=== PATIENT | male | born 1975 | race Caucasian/White ===

== ENCOUNTER 2017-10-24 13:11 | Emergency (ER) | payer MEDICAID ==
[~2017-10-24] VITALS: Ht 175.3 cm; Wt 69.7 kg
[~2017-10-24 13:11] MED LIST: ESOM20CA PO; HYDR-569 PO; NO HOME MEDS; PROM25TA14 PO
[2017-10-24 16:06] VITALS: BP 123/96
== END 2017-10-24 16:07 | disposition home or self-care (01) ==
LOC: ER 13:11
DX: G89.29 Other chronic pain (principal); M79.644 Pain in right finger(s); G43.909 Migraine, unspecified, not intractable, without status migrainosus; F12.10 Cannabis abuse, uncomplicated; F15.10 Other stimulant abuse, uncomplicated; F11.10 Opioid abuse, uncomplicated; Z79.899 Other long term (current) drug therapy
CPT/HCPCS: 29125; 99283

== ENCOUNTER 2018-08-11 08:02 | Emergency (ER) | payer MEDICAID ==
[~2018-08-11] VITALS: Ht 175.3 cm; Wt 69.7 kg
[~2018-08-11 08:02] MED LIST changes: +HYDR-4383 PO; -HYDR-569 PO
[2018-08-11 08:03] VITALS: BP 180/116
[2018-08-11] MEDS ORDERED: LORazepam 1 MG tablet PO ONE (08:15)
[2018-08-11] MEDS ORDERED: PENI250T2 PO (08:16)
[2018-08-11] MEDS ORDERED: ESCI10TA PO (08:16)
[2018-08-11] MEDS ORDERED: NAPR-56 PO (08:16)
== END 2018-08-11 08:24 | disposition home or self-care (01) ==
LOC: ER 08:02
DX: K13.79 Other lesions of oral mucosa (principal); F41.9 Anxiety disorder, unspecified; F12.90 Cannabis use, unspecified, uncomplicated; F15.90 Other stimulant use, unspecified, uncomplicated; F11.90 Opioid use, unspecified, uncomplicated; G43.909 Migraine, unspecified, not intractable, without status migrainosus; F32.9 Major depressive disorder, single episode, unspecified; Z76.0 Encounter for issue of repeat prescription; Z79.899 Other long term (current) drug therapy
CPT/HCPCS: 99283

== ENCOUNTER 2018-08-20 22:05 | Emergency (ER) | payer MEDICAID ==
[~2018-08-20] VITALS: Ht 175.3 cm; Wt 70.0 kg
[~2018-08-20 22:05] MED LIST changes: +ESCI10TA PO; +NAPR-56 PO; +PENI250T2 PO
[2018-08-20 22:13] VITALS: BP 138/90
[2018-08-20] MEDS ORDERED: ACET-812 PO (23:21)
[2018-08-20] MEDS ORDERED: IBUP-1984 PO (23:21)
== END 2018-08-20 23:34 | disposition home or self-care (01) ==
LOC: ER 22:06
DX: K08.89 Other specified disorders of teeth and supporting structures (principal); G43.909 Migraine, unspecified, not intractable, without status migrainosus; F12.90 Cannabis use, unspecified, uncomplicated; F15.90 Other stimulant use, unspecified, uncomplicated; F11.90 Opioid use, unspecified, uncomplicated; Z79.899 Other long term (current) drug therapy
CPT/HCPCS: 99282

== ENCOUNTER 2018-11-25 01:52 | Emergency (ER) | payer MEDICAID ==
[~2018-11-25] VITALS: Ht 180.3 cm; Wt 62.5 kg
[~2018-11-25 01:52] MED LIST changes: +ACET-812 PO; -NAPR-56 PO; -PENI250T2 PO
--- NOTE | 2018-11-25 02:44 | NUR ---
SOC CALLED FOR TELE PSYCH CONSULT. PT IS COMPLIANT WITH PROVIDING URINE SAMPLE AND LAB DRAW.
[2018-11-25] MEDS ORDERED: TRAZ-218 (02:57)
[2018-11-25] MEDS ORDERED: LORA1TAB (02:57)
[2018-11-25] MEDS ORDERED: ESCI5TAB PO (02:57)
[2018-11-25 03:05] LABS: ALANINE AMINOTRANSFERASE 31 U/L (12-78); ALBUMIN 4.5 G/DL (3.4-5.0); ALBUMIN/GLOBULIN RATIO 1.2 (1.1-1.5); ALKALINE PHOSPHATASE 128 IU/L (46-116); ANION GAP 12 (8-16); BILIRUBIN,TOTAL 1.3 MG/DL (0.1-1.0); BLOOD UREA NITROGEN 7 MG/DL (7-18); BUN/CREATININE RATIO 7.5 (5.4-32.0); CALCIUM 9.5 MG/DL (8.5-10.1); CHLORIDE 100 MMOL/L (99-107); CREATININE 0.93 MG/DL (0.60-1.10); GLUCOSE 113 MG/DL (70-104); SODIUM 139 MMOL/L (135-145); TOTAL CARBON DIOXIDE 27.2 MMOL/L (24-32); TOTAL PROTEIN 8.2 G/DL (6.4-8.2); eGFR 88 ML/MIN
[2018-11-25 03:10] LABS: URINE AMPHETAMINE SCREEN POSITIVE (Neg); URINE BARBITUATE SCREEN NEGATIVE (Neg); URINE BENZODIAZEPINES SCREEN NEGATIVE (Neg); URINE CANNABINOID SCREEN POSITIVE (Neg); URINE COCAINE SCREEN NEGATIVE (Neg); URINE METHADONE SCREEN NEGATIVE (Neg); URINE OPIATE SCREEN NEGATIVE (Neg); URINE PHENCYCLIDINE SCREEN NEGATIVE (Neg)
[2018-11-25 03:13] LABS: ASPARTATE AMINO TRANSFERASE 28 U/L (10-37); POTASSIUM 4.5 MMOL/L (3.5-5.1)
[2018-11-25 03:14] LABS: ETHANOL < 0.010 GM/DL (0.0-0.010)
[2018-11-25 04:54] LABS: BASOPHILS % (AUTO) 0.4 % (0-1); EOSINOPHILS % (AUTO) 0.4 % (0-6); HEMATOCRIT 43.3 % (42.0-52.0); HEMOGLOBIN 15.1 g/dl (14.0-17.9); LYMPHOCYTES # (AUTO) 1.9 X10'3 (1.1-4.8); LYMPHOCYTES % (AUTO) 19.6 % (21-51); MEAN CORPUSCULAR HEMOGLOBIN 31.4 PG (27.0-31.0); MEAN CORPUSCULAR VOLUME 89.6 FL (78-98); MEAN PLATELET VOLUME 6.3 FL (7.4-10.4); MONOCYTES % (AUTO) 10.4 % (2-12); NEUTROPHILS # (AUTO) 6.8 X10'3 (1.8-7.7); NEUTROPHILS % (AUTO) 69.2 % (42-75); PLATELET COUNT 259 X10'3 (140-440); RED BLOOD COUNT 4.83 X10'6 (4.70-6.10); RED CELL DISTRIBUTION WIDTH 13.8 % (11.5-14.5); WHITE BLOOD COUNT 9.8 X10'3 (4.5-11.0)
--- NOTE | 2018-11-25 05:02 | NUR ---
GIVEN SNACKS AND WARM BLANKETS. AWAITING TELE PSYCH.
--- NOTE | 2018-11-25 05:20 | NUR ---
TELE PSYCH MD CALLING FOR REPORT. HE WILL CALL PT SHORTLY. PT CURRENTLY SITTING UP IN THE BED AND IS QUITE. DENIES ANY NEEDS AT THIS TIME.
--- NOTE | 2018-11-25 06:05 | NUR ---
PT MOVED TO OVERFLOW BED 25. NOW GETTING INTO GREEN SCRUBS. TELE PSYCH RECOMMENDINIG EKG THEN TO START GEODONE 20 MG BID. TELE PSYCH REPORT RECEIVED.
--- NOTE | 2018-11-25 06:55 | NUR ---
called lab to add on ua to pt tox urine screen.
[2018-11-25] MEDS: ziprasidone 20mg capsule PO SCH ×2 (07:05→19:35)
--- NOTE | 2018-11-25 09:04 | NUR ---
called lab to add on ua to tox screen this mornging. stated will add on. second attempt.
[2018-11-25 09:32] LABS: CLARITY,URINE CLEAR (Clear); COLOR,URINE YELLOW (Yellow); GLUCOSE, URINE NEGATIVE (Neg); KETONES,URINE NEGATIVE (Neg); LEUKOCYTE ESTERASE ,URINE MODERATE (Neg); NITRITES, URINE NEGATIVE (Neg); OCCULT BLOOD,URINE TRACE-LYSED (Neg); PH,URINE 6.5 (4.8-8.0); PROTEIN,URINE NEGATIVE (Neg); UROBILINOGEN,URINE 0.2 E.U/dL (0.2-1.0)
[2018-11-25 09:34] LABS: UA COLLECTION TYPE CLN CATCH MIDSTREAM
[2018-11-25 09:45] LABS: MUCUS STRANDS MANY /LPF (Neg); SQUAMOUS EPITHELIAL CELL,UR FEW /LPF (FEW)
[2018-11-25 09:47] LABS: HYALINE CASTS 0-3 /LPF (NEGATIVE); WBC,URINE 20-30 /HPF (0-4)
[2018-11-25 09:48] LABS: WBC CLUMPS,URINE MODERATE /HPF (NEGATIVE)
[2018-11-25 09:49] LABS: BACTERIA,URINE FEW /HPF (Neg); RBC,URINE 0-2 /HPF (0-2)
[2018-11-25] MEDS ORDERED: cephalexin 250mg capsule PO ONE (10:00)
--- NOTE | 2018-11-25 13:00 | NUR ---
GAVE PATIENT HIS LUNCH TRAY. HE WAS SITTING IN BED, CALM AND COOPERATIVE. PATIENT RAYMUNDO AUGUSTIN/HI
--- NOTE | 2018-11-25 14:27 | NUR ---
PATIENT UP TO NURSING DESK STATING " IM ANXIOUS, I NEED MY LORAZEPAM" WE DISCUSSED ALTERNATIVES TO MEDICATION FOR ANXIETY. PATIENT STATED THAT HE LAST USED METH 2 DAYS AGO. I TOLD THE PATIENT THAT NO ATIVAN IS ORDERED.
--- NOTE | 2018-11-25 15:30 | NUR ---
DISCUSSED PATIENT WITH DR SIM, ORDERS RECEIVED
--- NOTE | 2018-11-25 17:30 | NUR ---
PATIETN UP TO BATHROOM, PLEASANT AXOX4.
[2018-11-25] MEDS: LORazepam 1 MG tablet PO PRN (19:35)
--- NOTE | 2018-11-25 20:00 | NUR ---
The patient is resting on his bed. He was focused on getting ativan and stated that he felt like his body was feeling "weird" He reports nausea but no vomiting. HR apically was in the 70's. He felt like there was ringing in his ears. He reports loose stools. Bowel sounds were hyperactive. There was no tremors. Visual hallucinations denied. He denies being suicidal and stated he has been feeling more hopeful since his sister told him that he could come live with her if he obstained from D&A use.
--- NOTE | 2018-11-25 22:55 | NUR ---
Report to [facility] and spoke with Yoan PIERRE
--- NOTE | 2018-11-26 00:33 | NUR ---
The patient Addendum: 11/26/18 at 0033 by SHIRA The patient appears to be asleep
--- NOTE | 2018-11-26 02:14 | NUR ---
THe patient appears to be asleep at this time
--- NOTE | 2018-11-26 04:41 | NUR ---
The patient appears to be asleep at this time
--- NOTE | 2018-11-26 06:30 | NUR ---
Pt is lying in bed, appears to be sleeping.
[2018-11-26] MEDS: ziprasidone 20mg capsule PO SCH ×2 (08:16→20:25)
[2018-11-26] MEDS: LORazepam 1 MG tablet PO PRN ×2 (08:16→20:25)
--- NOTE | 2018-11-26 08:30 | NUR ---
Pt reports that he is still having loose stools.
--- NOTE | 2018-11-26 10:30 | NUR ---
Pt lying in bed, appears to be sleeping.
--- NOTE | 2018-11-26 12:00 | NUR ---
Pt still appears to be sleeping.
--- NOTE | 2018-11-26 13:44 | NUR ---
Pt ate his lunch, now lying in bed on his right side with his eyes closed.
--- NOTE | 2018-11-26 14:30 | NUR ---
[facility] called they are processing pt's packet and will call back to do a nurse to nurse report.
--- NOTE | 2018-11-26 15:01 | NUR ---
[facility], requested CMP and urinalysis result be faxed over to them, faxed labs, nurse to nurse given, she will present to doctor and get back to us.
--- NOTE | 2018-11-26 16:34 | NUR ---
Pt is talking on the cordless phone, still awaiting call back from [facility].
--- NOTE | 2018-11-26 16:41 | NUR ---
Pt approached nurses' station asking if a psychiatrist was going to be in today as his sister would like to talk to them. Pt is wishing to be discharged to sister's house. Explained that someone from [facility] should be here this afternoon, will notify [facility] that he and his sister would like to speak with them.
[2018-11-26 17:48] VITALS: BP 125/98
--- NOTE | 2018-11-26 18:40 | NUR ---
Pt denies S/I @ this time. He states, "I have a drinking problem. If I start drinking, I'm like, meth? yeak, okay. That's what happened the other day. That's why I was seeing and hearing things. Meth does that too me." Pt also reports having spoken with his sister, who resides in [place], and is willing to provide him with a place to stay and social structure to aid in his sobriety. Pt is anxious AEB increased motor activity, but denies any other ETOH withdrawl symptoms at this time. Affect and mood WNL appearing stable @ this time. Pt is cooperative with staff.
--- NOTE | 2018-11-26 18:50 | NUR ---
Per Cyntiha, [facility], pt accepted @ [facility] with parts picker tentatively set for 2129 tonight.
== END 2018-11-26 21:29 ==
LOC: ER 01:53
DX: R44.0 Auditory hallucinations (principal); R44.1 Visual hallucinations; F15.90 Other stimulant use, unspecified, uncomplicated; F31.9 Bipolar disorder, unspecified; G43.909 Migraine, unspecified, not intractable, without status migrainosus; F12.90 Cannabis use, unspecified, uncomplicated; F11.90 Opioid use, unspecified, uncomplicated; Z79.899 Other long term (current) drug therapy
CPT/HCPCS: 36415; 80053; 80305; 80320; 81001; 84443; 85025; 87088; 93005; 99285

== ENCOUNTER 2019-08-01 08:20 | Emergency (ER) | payer MEDICAID ==
[~2019-08-01] VITALS: Ht 177.8 cm; Wt 70.5 kg
[~2019-08-01 08:20] MED LIST changes: -ACET-812 PO; -ESCI10TA PO; +ESCI5TAB PO; -ESOM20CA PO; -HYDR-4383 PO; +LORA1TAB; -NO HOME MEDS; -PROM25TA14 PO; +TRAZ-251
[2019-08-01 08:23] VITALS: BP 150/80
[2019-08-01] MEDS ORDERED: PENI250T2 PO (08:26)
[2019-08-01] MEDS ORDERED: NAPR-56 PO (08:26)
== END 2019-08-01 08:34 | disposition home or self-care (01) ==
LOC: ER 08:21
DX: K08.89 Other specified disorders of teeth and supporting structures (principal); K00.7 Teething syndrome; G43.909 Migraine, unspecified, not intractable, without status migrainosus; F32.9 Major depressive disorder, single episode, unspecified; F12.90 Cannabis use, unspecified, uncomplicated; F15.90 Other stimulant use, unspecified, uncomplicated; F11.90 Opioid use, unspecified, uncomplicated; Z79.899 Other long term (current) drug therapy
CPT/HCPCS: 99283

== ENCOUNTER 2019-09-04 05:55 | Emergency (ER) | payer MEDICAID ==
[~2019-09-04] VITALS: Ht 177.8 cm; Wt 74.9 kg
[2019-09-04 05:57] VITALS: BP 149/116
[2019-09-04] MEDS ORDERED: acetaminophen 325mg tablet PO ONE (06:20)
[2019-09-04] MEDS ORDERED: amoxicillin 250mg capsule PO ONE (06:20)
[2019-09-04] MEDS ORDERED: AMOX500C2 PO (06:23)
== END 2019-09-04 06:33 | disposition home or self-care (01) ==
LOC: ER 05:55
DX: K08.89 Other specified disorders of teeth and supporting structures (principal); G43.909 Migraine, unspecified, not intractable, without status migrainosus; F32.9 Major depressive disorder, single episode, unspecified; F12.90 Cannabis use, unspecified, uncomplicated; F15.90 Other stimulant use, unspecified, uncomplicated; F11.90 Opioid use, unspecified, uncomplicated; F10.99 Alcohol use, unspecified with unspecified alcohol-induced disorder; Z79.899 Other long term (current) drug therapy; Y90.9 Presence of alcohol in blood, level not specified
CPT/HCPCS: 99283

== ENCOUNTER 2019-12-21 01:40 | Emergency (ER) | payer MEDICAID ==
[~2019-12-21] VITALS: Ht 175.3 cm; Wt 75.0 kg
[2019-12-21] MEDS ORDERED: PENI500T2 PO (02:10)
[2019-12-21 02:28] VITALS: BP 164/120
== END 2019-12-21 02:20 | disposition home or self-care (01) ==
LOC: ER 01:41
DX: K02.9 Dental caries, unspecified (principal); G43.909 Migraine, unspecified, not intractable, without status migrainosus; F32.9 Major depressive disorder, single episode, unspecified; F12.90 Cannabis use, unspecified, uncomplicated; F15.90 Other stimulant use, unspecified, uncomplicated; F11.90 Opioid use, unspecified, uncomplicated; Z72.89 Other problems related to lifestyle; Z79.899 Other long term (current) drug therapy
CPT/HCPCS: 99283

== ENCOUNTER 2019-12-21 06:34 | Emergency (ER) | payer MEDICAID ==
[~2019-12-21] VITALS: Ht 175.3 cm; Wt 75.0 kg
[~2019-12-21 06:34] MED LIST changes: +PENI500T2 PO
[2019-12-21] MEDS ORDERED: LORazepam 1 MG tablet PO ONE (06:45)
--- NOTE | 2019-12-21 08:09 | NUR ---
Patient resting in bed with lights dimmed. Has blanket.
--- NOTE | 2019-12-21 09:27 | NUR ---
Patient given breakfast tray.
[2019-12-21 11:45] VITALS: BP 133/94
--- NOTE | 2019-12-21 11:45 | NUR ---
Patient resting in bed with lights dimmed. No distress noted and no other needs at this time.
== END 2019-12-21 11:53 | disposition home or self-care (01) ==
LOC: ER 06:34
DX: F41.9 Anxiety disorder, unspecified (principal); F32.9 Major depressive disorder, single episode, unspecified; K08.89 Other specified disorders of teeth and supporting structures; F12.90 Cannabis use, unspecified, uncomplicated; F15.10 Other stimulant abuse, uncomplicated; G43.909 Migraine, unspecified, not intractable, without status migrainosus; F11.90 Opioid use, unspecified, uncomplicated; Z87.891 Personal history of nicotine dependence; Z59.0 Homelessness; Z79.899 Other long term (current) drug therapy
CPT/HCPCS: 99285

== ENCOUNTER 2019-12-24 10:08 | Emergency (ER) | payer MEDICAID ==
[~2019-12-24] VITALS: Ht 175.3 cm; Wt 69.1 kg
[2019-12-24] MEDS ORDERED: LORazepam 1 MG tablet PO ONE (10:45)
[2019-12-24] MEDS ORDERED: LORA-269 PO (10:46)
[2019-12-24 11:21] VITALS: BP 166/113
== END 2019-12-24 11:32 | disposition home or self-care (01) ==
LOC: ER 10:08
DX: F41.9 Anxiety disorder, unspecified (principal); F32.9 Major depressive disorder, single episode, unspecified; G43.909 Migraine, unspecified, not intractable, without status migrainosus; F12.90 Cannabis use, unspecified, uncomplicated; F11.90 Opioid use, unspecified, uncomplicated; Z79.899 Other long term (current) drug therapy; Z72.89 Other problems related to lifestyle
CPT/HCPCS: 99283

== ENCOUNTER 2019-12-30 16:23 | Emergency (ER) | payer MEDICAID ==
[~2019-12-30] VITALS: Ht 175.3 cm; Wt 66.0 kg
[~2019-12-30 16:23] MED LIST changes: +LORA-269 PO
[2019-12-30 18:16] LABS: BASOPHILS % (AUTO) 0.3 % (0-1); EOSINOPHILS % (AUTO) 0.2 % (0-6); HEMATOCRIT 47.2 % (42.0-52.0); HEMOGLOBIN 16.2 g/dl (14.0-17.9); LYMPHOCYTES # (AUTO) 1.8 X10'3 (1.1-4.8); MEAN CORPUSCULAR HGB CONC 34.3 g/dL (33.0-36.5); MEAN CORPUSCULAR VOLUME 87.5 FL (78-98); MEAN PLATELET VOLUME 6.8 FL (7.4-10.4); MONOCYTES # (AUTO) 1.1 X10'3 (0-0.9); MONOCYTES % (AUTO) 10.6 % (2-12); NEUTROPHILS # (AUTO) 7.6 X10'3 (1.8-7.7); NEUTROPHILS % (AUTO) 71.9 % (42-75); PLATELET COUNT 269 X10'3 (140-440); RED BLOOD COUNT 5.39 X10'6 (4.70-6.10); WHITE BLOOD COUNT 10.5 X10'3 (4.5-11.0)
[2019-12-30 18:30] LABS: ALANINE AMINOTRANSFERASE 18 U/L (12-78); ALBUMIN 4.3 G/DL (3.4-5.0); ALBUMIN/GLOBULIN RATIO 1.1 (1.1-1.5); ALKALINE PHOSPHATASE 103 IU/L (46-116); ANION GAP 9 (8-16); ASPARTATE AMINO TRANSFERASE 26 U/L (10-37); BILIRUBIN,TOTAL 1.7 MG/DL (0.1-1.0); BLOOD UREA NITROGEN 12 MG/DL (7-18); BUN/CREATININE RATIO 11.7 (5.4-32.0); CHLORIDE 100 MMOL/L (99-107); CREATININE 1.03 MG/DL (0.60-1.10); GLUCOSE 105 MG/DL (70-104); POTASSIUM 3.9 MMOL/L (3.5-5.1); SODIUM 137 MMOL/L (135-145); TOTAL CARBON DIOXIDE 27.6 MMOL/L (24-32); TOTAL PROTEIN 8.1 G/DL (6.4-8.2); eGFR 78 ML/MIN
[2019-12-30 18:39] LABS: ETHANOL < 0.010 GM/DL (0.0-0.010)
[2019-12-30 19:03] LABS: CLARITY,URINE SLIGHTLY CLOUDY (Clear); COLOR,URINE YELLOW (Yellow); GLUCOSE, URINE NEGATIVE (Neg); KETONES,URINE 15 mg/dl (Neg); LEUKOCYTE ESTERASE ,URINE NEGATIVE (Neg); NITRITES, URINE NEGATIVE (Neg); OCCULT BLOOD,URINE TRACE-INTACT (Neg); PROTEIN,URINE 30 mg/dl (Neg)
[2019-12-30 19:04] LABS: UA COLLECTION TYPE VOIDED
[2019-12-30] MEDS ORDERED: LORazepam 1 MG tablet PO ONE (19:05)
[2019-12-30 19:09] LABS: URINE AMPHETAMINE SCREEN POSITIVE (Neg); URINE BARBITUATE SCREEN NEGATIVE (Neg); URINE BENZODIAZEPINES SCREEN NEGATIVE (Neg); URINE CANNABINOID SCREEN POSITIVE (Neg); URINE COCAINE SCREEN NEGATIVE (Neg); URINE METHADONE SCREEN NEGATIVE (Neg); URINE OPIATE SCREEN NEGATIVE (Neg); URINE PHENCYCLIDINE SCREEN NEGATIVE (Neg)
[2019-12-30 19:20] LABS: BACTERIA,URINE NONE SEEN /HPF (Neg); HYALINE CASTS 0-3 /LPF (NEGATIVE); MUCUS STRANDS MANY /LPF (Neg); RBC,URINE NONE SEEN /HPF (0-2); SPERM MODERATE /HPF (NEGATIVE); SQUAMOUS EPITHELIAL CELL,UR FEW /LPF (FEW); WBC,URINE 0-4 /HPF (0-4)
--- NOTE | 2019-12-30 19:46 | NUR ---
Assumed care from [facility] on day shift. Patient is awake and well oriented. This patient complains of anxiety, depression, and suicidal ideation. Patient has no suicidal plan at times. Hx of recent meth and alcohol use. Patient states last alcohol use was last night. Patient was given PO Ativan 1mg for anxiety. Patient is in view from the nursing station. Frequent rounding is being done for patient safety.
--- NOTE | 2019-12-30 21:40 | NUR ---
Fortino wilson in [facility] - 12/30/19 at 2141 by GREGORY Patient is being interviewed by [facility] RN.
--- NOTE | 2019-12-30 21:41 | NUR ---
Patient is sleeping quietly, low fowlers position in bed.
--- NOTE | 2019-12-30 23:20 | NUR ---
Patient is sleeping on his right side, mid fowlers position in bed.
--- NOTE | 2019-12-31 00:21 | NUR ---
Patient is awake, he repositions onto his right side.
--- NOTE | 2019-12-31 01:42 | NUR ---
Patient is sleeping mid fowlers position, his head to the right side. In view from the nursing station.
--- NOTE | 2019-12-31 04:32 | NUR ---
Patient is sleeping in a in a low fowlers position with knees flexed.
[2019-12-31] MEDS ORDERED: LORazepam 1 MG tablet PO PRN (06:50)
--- NOTE | 2019-12-31 08:54 | NUR ---
[facility]. pt ate breatfast and has been up walking to bathroom
--- NOTE | 2019-12-31 10:52 | NUR ---
in bed resting ambulates self to bathroom
--- NOTE | 2019-12-31 12:22 | NUR ---
pt in bed resting no s/s of distress
--- NOTE | 2019-12-31 12:52 | NUR ---
spoke with matt vidales from [facility] regarding pt acceptance, anwered all questions matt advised that they are reviewing the pt with their provider and will call back if accepted.
--- NOTE | 2019-12-31 16:29 | NUR ---
in bed resting was complaining of increase in anxity atavn given pt now laying in bed tring to rest
--- NOTE | 2019-12-31 17:20 | NUR ---
pt up walking around asked when he will be going to rest padd
--- NOTE | 2019-12-31 18:30 | NUR ---
Patient is ambulatory on the unit. He returns to bed where this underwriter mortgage loan performes a 1:1 interview. The patient is well oriented. Patient denies S/I or H/I at this moment. Patient states he is angry with self that he took drugs after being sober for nine months. Patient does have a support system, he lives next to his sisters hous in a small shed like structure that is being modified into a small living quarters. The patient admits to long-term depression, he denies hallucinations at this moment. Patent is scheduled to transfer to adult behavioral health, perhaps [facility].
[2019-12-31 20:59] VITALS: BP 148/88
== END 2019-12-31 21:04 ==
LOC: ER 16:24
DX: R45.851 Suicidal ideations (principal); R44.0 Auditory hallucinations; F41.9 Anxiety disorder, unspecified; F32.9 Major depressive disorder, single episode, unspecified; F12.90 Cannabis use, unspecified, uncomplicated; F15.90 Other stimulant use, unspecified, uncomplicated; F11.90 Opioid use, unspecified, uncomplicated; Z79.899 Other long term (current) drug therapy
CPT/HCPCS: 36415; 80053; 80305; 80320; 81001; 84443; 85025; 99285

== ENCOUNTER 2019-12-31 14:20 | Inpatient (IN) | payer MEDICAID ==
[~2019-12-31] VITALS: Ht 175.3 cm; Wt 72.5 kg
[2019-12-31] MEDS ORDERED: magnesium hydroxide 30ml (MOM) UD suspension PO PRN (20:05)
[2019-12-31] MEDS ORDERED: hydrOXYzine 25 MG tablet PO PRN (20:05)
[2019-12-31] MEDS ORDERED: haloperidol 5mg tablet PO PRN (20:05)
[2019-12-31] MEDS ORDERED: acetaminophen 325mg tablet PO PRN ×2 (20:05)
[2019-12-31] MEDS ORDERED: traZODone 50mg tablet PO PRN (20:05)
[2019-12-31] MEDS ORDERED: loperamide 2mg capsule PO PRN (20:05)
[2019-12-31] MEDS ORDERED: LORazepam 1 MG tablet PO PRN ×2 (20:05)
[2019-12-31] MEDS ORDERED: diphenhydrAMINE 25mg capsule PO PRN (20:05)
[2019-12-31] MEDS ORDERED: mag hydrox/Alum hydrox/simeth 30ml oral suspension PO PRN (20:05)
[2019-12-31] MEDS ORDERED: traZODone 50mg tablet PO SCH (21:00)
[2019-12-31 22:40] VITALS: BP 124/83
--- NOTE | 2020-01-01 00:45 | NUR ---
NURSING ADMISSION NOTE Pt was admitted to [facility] on 12/31/2019 at 2055. Pt was offered a shower which he took. 2 RN skin check completed. 5150 advisement completed, pt verbalized understanding. Belongings inventoried and admission paperwork completed. 44 year old male presented to the ED for complaints of auditory hallucinations for the past several days. Patient explains that he lives with his sister and I dont really trust my brother in law anymore. He told nursing staff that he keeps hearing a voice that says fag. He states that he is having thoughts of suicide, but denies any plan. Denies any history of suicide. Patient did recently have 8 months clean from methamphetamine, but reportedly relapsed last month. He was previously under psychiatric care at [facility] but has not been seen in over a year.
[2020-01-01 08:00] VITALS: BP 125/90
[2020-01-01 08:00] LABS: CHOL/HDL RATIO 3.9 (0.00-4.99); CHOLESTEROL 157 MG/DL (0-200); HDL CHOLESTEROL 40 MG/DL (35-60); LDL CHOLESTEROL 102 MG/DL (50-100); TRIGLYCERIDES 92 MG/DL (20-135)
[2020-01-01] MEDS ORDERED: ESCITALOPRAM OXALATE 5 MG TABLET PO SCH (08:00)
--- NOTE | 2020-01-01 17:34 | NUR ---
Nursing Progress Note: Legal hold: 5150 Client on involuntary status for GD Report received from nurse Harriet RN with use of SBAR: Why are they here: 44 year old male presented to the ED for complaints of auditory hallucinations for the past several days. Patient explains that he lives with his sister and I dont really trust my brother in law anymore. He told nursing staff that he keeps hearing a voice that says fag. He states that he is having thoughts of suicide, but denies any plan. Denies any history of suicide. Patient was 8 months clean from methamphetamine, but reportedly relapsed last month. He was previously under psychiatric care at [facility] but has not been seen in over a year. Assessment What has happened this shift: Pt. asleep at start of shift. Pt awake for medication and breakfast. Pt. ate all his meals in the community room. 1:1 done at bedside. Pt. reports feeling regret at his relapse, pt. states, I just am so angry with myself. I cant believe I was such an idiot! Pt. reports he is feeling 7/10 depression because of his relapse. Pt. denies SI/HI, A/V hallucinations. Pt. reports growing up with a father who was an alcoholic and a mother who had ADHD and would just sit in front of the TV all day. Pt. reports he first started doing meth and 11 y.o. and remembers his first high, It was like a roller coaster he recalls. Pt. reports he relapsed this time because he decided to drink a beer at a friends place. Pt. states, that was such a mistake!. SI/HI: Pt denies A/VH: Pt denies Sleep: Pt. napped intermittently throughout the day. ADL's: Independent Group attendance: N/A Were meds taken: Yes Any med S/E: None noted nor reported. Mental Status Exam Appearance: Disheveled, unshaven, wearing green scrubs. Eye contact: Good Behavior: Withdrawn, isolates to room majority of the day, seen pacing and socializing at times in hallway Speech: Clear, audible, normal rate, and rhythm. Mood: Euthymic Affect: Congruent with mood Thought process: Linear Thought Content: Food Cognition: A/Ox3, disoriented to situation. Insight: Poor Judgment: Poor Interventions PRN's used: None Therapeutic interventions: 1;1 assessment, active listening, ensured contract for safety, encouraged pt to get up out of bed, maintained a safe and supportive environment, medication administration/education/monitoring, Q 15 minute safety checks. Restraints/seclusion/emergency medication: N/A Justification of Continued Inpatient Treatment: Per WAYNE Finch, pt. remains pleasantly psychotic and continues to require a safe and supportive environment awaiting placement.
[2020-01-01] MEDS ORDERED: LORazepam 1 MG tablet PO PRN ×2 (18:45)
[2020-01-01 20:05] VITALS: BP 147/90
--- NOTE | 2020-01-02 01:30 | NUR ---
Nursing Progress Note: Legal hold: 5150 Client on involuntary status for GD Report received from ARABELLA Pascual with use of SBAR: Why are they here: 44 year old male presented to the ED for complaints of auditory hallucinations for the past several days. Patient explains that he lives with his sister and I dont really trust my brother in law anymore. He told nursing staff that he keeps hearing a voice that says fag. He states that he is having thoughts of suicide, but denies any plan. Denies any history of suicide. Patient was 8 months clean from methamphetamine, but reportedly relapsed last month. He was previously under psychiatric care at [facility] but has not been seen in over a year. Assessment What has happened this shift: Pt. up on unit at start of shift watching TV in Rec room with another pts. Pt asked immediately and was given Ativan for anxiety. Pt said "everything is going good" Pt talked about his relapse on Meth but he is planning on getting a AA sponsor when he gets discharged. "the reason I relapsed is because I didn't have anyone to talk to." He also said he was going to be followed by Mental carly when he is discharged. He is very hopeful for his future and belives he can stay sober with support from AA and mental health. SI/HI: Pt denies A/VH: Pt denies Sleep: Asleep at this time ADL's: Independent Group attendance: N/A Were meds taken: Yes Any med S/E: None noted nor reported. Mental Status Exam Appearance: wearing green scrubs. Eye contact: Good Behavior: Pleasant cooperative socializes with other pts. Speech: Clear, audible, normal rate, and rhythm. Mood: "good" Affect: Congruent with mood Thought process: Linear Thought Content: Discharge Cognition: A/Ox4 Insight: good Judgment: good Interventions PRN's used: Ativan Therapeutic interventions: 1;1 assessment, active listening, ensured contract for safety, encouraged pt to get up out of bed, maintained a safe and supportive environment, medication administration/education/monitoring, Q 15 minute safety checks. Restraints/seclusion/emergency medication: N/A Justification of Continued Inpatient Treatment: Per WAYNE Finch, pt. remains pleasantly psychotic and continues to require a safe and supportive environment awaiting placement.
[2020-01-02 08:00] VITALS: BP 150/100
[2020-01-02] MEDS: ESCITALOPRAM OXALATE 5 MG TABLET PO SCH (08:06)
[2020-01-02 11:01] VITALS: BP 140/96
--- NOTE | 2020-01-02 17:39 | NUR ---
Nursing Progress Note: Legal hold: 5150 Client on involuntary status for GD Report received from CRN with use of SBAR: Why are they here: 44 year old male presented to the ED for complaints of auditory hallucinations for the past several days. Patient explains that he lives with his sister and I dont really trust my brother in law anymore. He told nursing staff that he keeps hearing a voice that says fag. He states that he is having thoughts of suicide, but denies any plan. Denies any history of suicide. Patient was 8 months clean from methamphetamine, but reportedly relapsed last month. He was previously under psychiatric care at [facility] but has not been seen in over a year. Assessment What has happened this shift: Pt. asleep at start of shift. Pt compliant with medication administration and cooperative with assessment. Pt reports feeling a little depression and anxiety. Pt up on the unit during the day. He exercised on the cycle during the AM. He was pleasant and friendly. SI/HI: Denies A/VH: Denies Sleep: Napped at times during the day. ADL's: Independent Group attendance: N/A Were meds taken: Yes Any med S/E: None noted or reported. Mental Status Exam Appearance: Green scrubs, neat. Eye contact: Direct Behavior: Naps at times, but socializes at other times, spent time on exercise cycle Speech: Normal rate, and rhythm. Mood: Euthymic Affect: Constricted Thought process: Linear Thought Content: Did not talk about his thoughts Cognition: A/Ox3 Insight: Poor Judgment: Poor Interventions PRN's used: None Therapeutic interventions: 1:1 therapeutic assessment, active listening, encouraged pt to get up out of bed, maintained a safe and supportive environment, medication administration/education/monitoring, Q 15 minute safety checks. Restraints/seclusion/emergency medication: N/A Justification of Continued Inpatient Treatment: Pt. continues to require interruption of current crisis, medication adjustments and a safe and therapeutic environment to prevent further decompensation.
[2020-01-02 20:16] VITALS: BP 160/99
--- NOTE | 2020-01-02 23:44 | NUR ---
Nursing Progress Note: Legal hold: 5150 Client on involuntary status for GD Report received from ARABELLA Pascual with use of SBAR: Why are they here: 44 year old male presented to the ED for complaints of auditory hallucinations for the past several days. Patient explains that he lives with his sister and I dont really trust my brother in law anymore. He told nursing staff that he keeps hearing a voice that says fag. He states that he is having thoughts of suicide, but denies any plan. Denies any history of suicide. Patient was 8 months clean from methamphetamine, but reportedly relapsed last month. He was previously under psychiatric care at [facility] but has not been seen in over a year. Assessment What has happened this shift: Pt. up on unit at start of shift sitting in group room watching tv. pt denies any complaints and denies feeling suicidal today. When asked about the circumstances surrounding being here pt was not very forthcoming and did not want to discuss it, but was otherwise pleasant. Pt's bp was elevated at change of shift but then refused to have it rechecked later in the evening. Pt did not appear to be responding to internal stimuli and did not ask for prn's. SI/HI: Pt denies A/VH: Pt denies Sleep: Asleep at this time ADL's: Independent Group attendance: N/A Were meds taken: Yes Any med S/E: None noted nor reported. Mental Status Exam Appearance: wearing green scrubs. Eye contact: Good Behavior: Pleasant cooperative socializes with other pts. Speech: Clear, audible, normal rate, and rhythm. Mood: "good" Affect: Congruent with mood Thought process: Linear Thought Content: Discharge Cognition: A/Ox4 Insight: good Judgment: good Interventions PRN's used: none Therapeutic interventions: 1;1 assessment, active listening, ensured contract for safety, encouraged pt to get up out of bed, maintained a safe and supportive environment, medication administration/education/monitoring, Q 15 minute safety checks. Restraints/seclusion/emergency medication: N/A Justification of Continued Inpatient Treatment: Per WAYNE Finch, pt. remains pleasantly psychotic and continues to require a safe and supportive environment awaiting placement.
[2020-01-03 07:00] VITALS: BP 137/51
[2020-01-03] MEDS: ESCITALOPRAM OXALATE 5 MG TABLET PO SCH (08:24)
[2020-01-03] MEDS ORDERED: ESCI5TAB PO (12:19)
[2020-01-03] MEDS ORDERED: TRAZ-251 PO (12:19)
--- NOTE | 2020-01-03 16:16 | NUR ---
DISCHARGE NOTE: Patient's belongings were re-inventoried and given to patient at discharge. Pt. denies SI/HI. Patient was supposed to be discharged to his sister's, but patient states "I may go by there, but I am my own man. Bus ticket given to patient to get to sisters house. Patient discharged in stable condition.
== END 2020-01-03 17:55 | disposition home or self-care (01) | DRG 751 ==
LOC: ADULT MH 14:20
PROVIDERS: ADMIT Psychiatry & Neurology Psychiatry; ATTEND Psychiatry & Neurology Psychiatry
DX: F33.1 Major depressive disorder, recurrent, moderate (principal); R45.851 Suicidal ideations; F41.9 Anxiety disorder, unspecified; F15.10 Other stimulant abuse, uncomplicated; G43.909 Migraine, unspecified, not intractable, without status migrainosus; Z81.1 Family history of alcohol abuse and dependence; Z83.3 Family history of diabetes mellitus; Z56.0 Unemployment, unspecified; Z79.899 Other long term (current) drug therapy
CPT/HCPCS: 36415; 80061; 83036; 87081; 99285

== ENCOUNTER 2020-01-19 23:31 | Emergency (ER) | payer MEDICAID ==
[~2020-01-19] VITALS: Ht 177.8 cm; Wt 72.7 kg
[~2020-01-19 23:31] MED LIST changes: -LORA-269 PO; -LORA1TAB; -PENI500T2 PO; +TRAZ-251 PO
--- NOTE | 2020-01-20 01:52 | NUR ---
pt states he is not feeling suicidial. He is hearing voices. His anxiety is high. He states he is having a lot of confusing thoughts with anger
[2020-01-20] MEDS ORDERED: chlordiazePOXIDE 25mg capsule PO ONE (03:30)
[2020-01-20] MEDS ORDERED: ESCI5TAB PO (03:32)
[2020-01-20] MEDS ORDERED: OLANZapine 5mg rapidly disint. tablet PO ONE (03:35)
[2020-01-20 04:28] VITALS: BP 168/110
[2020-01-20] MEDS ORDERED: ESCITALOPRAM OXALATE 5 MG TABLET PO SCH (08:00)
== END 2020-01-20 04:29 | disposition home or self-care (01) ==
LOC: ER 23:31
DX: Z00.8 Encounter for other general examination (principal); Z91.19 Patient's noncompliance with other medical treatment and regimen; R44.0 Auditory hallucinations; G43.909 Migraine, unspecified, not intractable, without status migrainosus; F41.9 Anxiety disorder, unspecified; F32.9 Major depressive disorder, single episode, unspecified; F10.10 Alcohol abuse, uncomplicated; F12.90 Cannabis use, unspecified, uncomplicated; F15.90 Other stimulant use, unspecified, uncomplicated; Z79.899 Other long term (current) drug therapy; Y90.9 Presence of alcohol in blood, level not specified
CPT/HCPCS: 99283

== ENCOUNTER 2020-01-25 15:33 | Inpatient (IN) | payer MEDICAID ==
[~2020-01-25] VITALS: Ht 175.3 cm; Wt 65.4 kg
[2020-01-25] MEDS ORDERED: NO HOME MEDS (16:04)
[2020-01-25] MEDS ORDERED: LORazepam 1 MG tablet PO ONE (16:10)
--- NOTE | 2020-01-25 16:10 | NUR ---
pt moved from er 16 to overflow 25
[2020-01-25 16:24] LABS: BASOPHILS # (AUTO) 0.1 X10'3 (0-0.2); BASOPHILS % (AUTO) 0.9 % (0-1); EOSINOPHILS % (AUTO) 0.3 % (0-6); HEMATOCRIT 49.3 % (42.0-52.0); LYMPHOCYTES # (AUTO) 1.9 X10'3 (1.1-4.8); LYMPHOCYTES % (AUTO) 14.2 % (21-51); MEAN CORPUSCULAR HEMOGLOBIN 30.7 PG (27.0-31.0); MEAN CORPUSCULAR HGB CONC 34.4 g/dL (33.0-36.5); MEAN CORPUSCULAR VOLUME 89.1 FL (78-98); MEAN PLATELET VOLUME 6.7 FL (7.4-10.4); MONOCYTES # (AUTO) 1.6 X10'3 (0-0.9); NEUTROPHILS # (AUTO) 9.9 X10'3 (1.8-7.7); NEUTROPHILS % (AUTO) 72.6 % (42-75); PLATELET COUNT 334 X10'3 (140-440); RED BLOOD COUNT 5.53 X10'6 (4.70-6.10); RED CELL DISTRIBUTION WIDTH 14.4 % (11.5-14.5); WHITE BLOOD COUNT 13.6 X10'3 (4.5-11.0)
[2020-01-25 16:26] LABS: ALANINE AMINOTRANSFERASE 67 U/L (12-78); ALBUMIN 4.7 G/DL (3.4-5.0); ALBUMIN/GLOBULIN RATIO 1.1 (1.1-1.5); ALKALINE PHOSPHATASE 109 IU/L (46-116); ANION GAP 15 (8-16); ASPARTATE AMINO TRANSFERASE 74 U/L (10-37); BILIRUBIN,TOTAL 1.2 MG/DL (0.1-1.0); BLOOD UREA NITROGEN 15 MG/DL (7-18); BUN/CREATININE RATIO 6.4 (5.4-32.0); CHLORIDE 102 MMOL/L (99-107); CREATININE 2.34 MG/DL (0.60-1.10); GLUCOSE 148 MG/DL (70-104); POTASSIUM 3.6 MMOL/L (3.5-5.1); SODIUM 141 MMOL/L (135-145); TOTAL CARBON DIOXIDE 24.3 MMOL/L (24-32); TOTAL PROTEIN 8.8 G/DL (6.4-8.2); eGFR 30 ML/MIN
[2020-01-25 16:36] LABS: ETHANOL < 0.010 GM/DL (0.0-0.010)
[2020-01-25] MEDS ORDERED: normal saline 1000ML IV soln IV ONE (16:50)
[2020-01-25] MEDS ORDERED: magnesium hydroxide 30ml (MOM) UD suspension PO PRN (17:20)
[2020-01-25] MEDS ORDERED: HYDROcodone/acetaminophen 10/325mg tab PO PRN (17:20)
[2020-01-25] MEDS ORDERED: HYDROcodone/acetaminophen 5mg/325mg tablet PO PRN (17:20)
[2020-01-25] MEDS ORDERED: acetaminophen 325mg tablet PO PRN ×2 (17:20)
[2020-01-25] MEDS ORDERED: ondansetron/PF 4mg/2ml inj IV PRN (17:20)
[2020-01-25] MEDS ORDERED: morphine 2 MG/ML inj. syringe IV PRN ×2 (17:20)
[2020-01-25] MEDS ORDERED: mag hydrox/Alum hydrox/simeth 30ml oral suspension PO PRN (17:20)
--- NOTE | 2020-01-25 17:22 | NUR ---
pt is going back to main er due to abnormal kidney issues. belonging returned to the patient. iv started and fluids.
--- NOTE | 2020-01-25 17:34 | NUR ---
Pt just returned to the main side of the ED as he is being admitted for acute kidney injury. Pt denies any needs at this time.
--- NOTE | 2020-01-25 18:41 | NUR ---
Received report from Khadijah PIERRE in the ER. Pt arrived on the unit in green scrubs via wheelchair with NS bolus running at 999 mls/hr. Pt was on R/A, with no signs of distress. Will continue to monitor.
[2020-01-25 19:03] LABS: CLARITY,URINE SLIGHTLY CLOUDY (Clear); COLOR,URINE YELLOW (Yellow); GLUCOSE, URINE NEGATIVE (Neg); KETONES,URINE NEGATIVE (Neg); LEUKOCYTE ESTERASE ,URINE NEGATIVE (Neg); NITRITES, URINE NEGATIVE (Neg); OCCULT BLOOD,URINE TRACE-INTACT (Neg); PROTEIN,URINE TRACE mg/dl (Neg); UROBILINOGEN,URINE 0.2 E.U/dL (0.2-1.0)
[2020-01-25 19:08] LABS: UA COLLECTION TYPE CLN CATCH MIDSTREAM
[2020-01-25 19:09] LABS: BACTERIA,URINE NONE SEEN /HPF (Neg); RBC,URINE 0-2 /HPF (0-2); SQUAMOUS EPITHELIAL CELL,UR FEW /LPF (FEW); WBC,URINE 0-4 /HPF (0-4)
[2020-01-25 19:14] LABS: URINE AMPHETAMINE SCREEN POSITIVE (Neg); URINE BARBITUATE SCREEN NEGATIVE (Neg); URINE BENZODIAZEPINES SCREEN NEGATIVE (Neg); URINE CANNABINOID SCREEN POSITIVE (Neg); URINE COCAINE SCREEN NEGATIVE (Neg); URINE METHADONE SCREEN NEGATIVE (Neg); URINE OPIATE SCREEN NEGATIVE (Neg); URINE PHENCYCLIDINE SCREEN NEGATIVE (Neg)
[2020-01-25] MEDS: normal saline 1000ml 1,000 ML IV SCH (21:51)
--- NOTE | 2020-01-25 23:46 | NUR ---
Pt sister called Jareth Nicolas [phone] - Sisiter did not request any information about patient, only to leave information for MD and staff. She wants md to be aware pt "does this frequently, checks into each hospital", "gets ativan feels better", then discharges home. Pt starts using drugs shortly after discharge, starts seeing and hearing things, depression then admits himself to hospital again. family is fearful of him. She does not want pt notified she called to give this information. Addendum: 01/25/20 at 2346 by Washington Peterson RN Amended: Links added.
[2020-01-25 23:59] VITALS: BP 117/78
[2020-01-26 01:38] LABS: BASOPHILS # (AUTO) 0.1 X10'3 (0-0.2); BASOPHILS % (AUTO) 0.5 % (0-1); EOSINOPHILS % (AUTO) 0.4 % (0-6); HEMATOCRIT 44.3 % (42.0-52.0); LYMPHOCYTES # (AUTO) 2.6 X10'3 (1.1-4.8); LYMPHOCYTES % (AUTO) 25.6 % (21-51); MEAN CORPUSCULAR HEMOGLOBIN 30.5 PG (27.0-31.0); MEAN CORPUSCULAR HGB CONC 33.8 g/dL (33.0-36.5); MEAN CORPUSCULAR VOLUME 90.2 FL (78-98); MEAN PLATELET VOLUME 6.5 FL (7.4-10.4); MONOCYTES # (AUTO) 1.4 X10'3 (0-0.9); MONOCYTES % (AUTO) 13.2 % (2-12); NEUTROPHILS # (AUTO) 6.2 X10'3 (1.8-7.7); NEUTROPHILS % (AUTO) 60.3 % (42-75); PLATELET COUNT 287 X10'3 (140-440); RED BLOOD COUNT 4.91 X10'6 (4.70-6.10); RED CELL DISTRIBUTION WIDTH 14.2 % (11.5-14.5); WHITE BLOOD COUNT 10.3 X10'3 (4.5-11.0)
[2020-01-26 01:50] LABS: ALBUMIN 3.9 G/DL (3.4-5.0); ANION GAP 10 (8-16); BLOOD UREA NITROGEN 14 MG/DL (7-18); BUN/CREATININE RATIO 10.9 (5.4-32.0); CALCIUM 8.6 MG/DL (8.5-10.1); CHLORIDE 107 MMOL/L (99-107); CREATININE 1.29 MG/DL (0.60-1.10); GLUCOSE 109 MG/DL (70-104); POTASSIUM 3.6 MMOL/L (3.5-5.1); SODIUM 143 MMOL/L (135-145); TOTAL CARBON DIOXIDE 25.8 MMOL/L (24-32); eGFR 60 ML/MIN
[2020-01-26] MEDS: normal saline 1000ml 1,000 ML IV SCH ×2 (03:20→08:03)
--- NOTE | 2020-01-26 06:35 | NUR ---
Problems reprioritized. Patient report given, questions answered & plan of care reviewed with Bambi PIERRE.
--- NOTE | 2020-01-26 06:44 | NUR ---
Patient in room DEO 344. I have received report from grupo PIERRE and had the opportunity to ask questions and assume patient care.
[2020-01-26 07:00] VITALS: BP 109/71
[2020-01-26] MEDS ORDERED: levoTHYROXINE 25mcg tablet PO SCH (07:00)
[2020-01-26] MEDS ORDERED: LORazepam 1 MG tablet PO PRN (09:55)
[2020-01-26 11:45] VITALS: BP 110/76
[2020-01-26] MEDS ORDERED: LEVO25TA7 PO (15:58)
--- NOTE | 2020-01-26 16:49 | NUR ---
PATIENT SEEN BY DR GROVES AND ADULT MENTAL HEALTH, ALSO HEALTH INSURANCE SALES AGENT. PATIENT IS FOR DISCHARGE. ALL DC INSTRUCTIONS GIVEN TO PATIENT. MED CALLED INTO [facility] ON [address] . PATIENT STATED HE HAS MONEY FOR CAB AND WILL GET HIMSELF TO HIS SISTERS HOUSE. DC FROM HOSPITAL IN MEDICALLY STABLE CONDITION. 1644
== END 2020-01-26 16:50 | disposition home or self-care (01) | DRG 469 ==
LOC: ER 15:34 → ED HOLD 17:20 → UNDOADMIN 18:01 → SUR 3N 18:55 → ED HOLD 18:55
PROVIDERS: ADMIT Internal Medicine; ATTEND Internal Medicine
DX: N17.9 Acute kidney failure, unspecified (principal); F25.0 Schizoaffective disorder, bipolar type; E03.9 Hypothyroidism, unspecified; E86.0 Dehydration; F15.10 Other stimulant abuse, uncomplicated; F12.90 Cannabis use, unspecified, uncomplicated; F32.9 Major depressive disorder, single episode, unspecified; F41.9 Anxiety disorder, unspecified; G43.909 Migraine, unspecified, not intractable, without status migrainosus; R94.6 Abnormal results of thyroid function studies; Z83.3 Family history of diabetes mellitus
CPT/HCPCS: 36415; 80048; 80053; 80305; 80320; 81001; 83880; 84443; 85025; 87081; 96374; 99285; G0378; J7030

== ENCOUNTER 2020-02-02 00:28 | Emergency (ER) | payer MEDICAID ==
[~2020-02-02] VITALS: Ht 175.3 cm; Wt 72.7 kg
[~2020-02-02 00:28] MED LIST changes: -ESCI5TAB PO; +LEVO25TA7 PO; -TRAZ-251; -TRAZ-251 PO
[2020-02-02 01:04] LABS: BASOPHILS # (AUTO) 0.1 X10'3 (0-0.2); EOSINOPHILS % (AUTO) 0.1 % (0-6); MEAN PLATELET VOLUME 6.6 FL (7.4-10.4); RED CELL DISTRIBUTION WIDTH 14.2 % (11.5-14.5)
[2020-02-02 01:04] LABS: CLARITY,URINE CLOUDY (Clear); COLOR,URINE YELLOW (Yellow); GLUCOSE, URINE NEGATIVE (Neg); KETONES,URINE 15 mg/dl (Neg); LEUKOCYTE ESTERASE ,URINE TRACE (Neg); NITRITES, URINE NEGATIVE (Neg); OCCULT BLOOD,URINE TRACE-INTACT (Neg); PROTEIN,URINE 100 mg/dl (Neg); UROBILINOGEN,URINE 0.2 E.U/dL (0.2-1.0)
[2020-02-02 01:05] LABS: UA COLLECTION TYPE CLN CATCH MIDSTREAM
[2020-02-02 01:07] LABS: BASOPHILS % (AUTO) 0.3 % (0-1); HEMATOCRIT 49.6 % (42.0-52.0); LYMPHOCYTES # (AUTO) 2.2 X10'3 (1.1-4.8); LYMPHOCYTES % (AUTO) 12.2 % (21-51); MEAN CORPUSCULAR HEMOGLOBIN 30.9 PG (27.0-31.0); MEAN CORPUSCULAR HGB CONC 34.3 g/dL (33.0-36.5); MEAN CORPUSCULAR VOLUME 90.3 FL (78-98); MONOCYTES % (AUTO) 11.6 % (2-12); NEUTROPHILS # (AUTO) 13.5 X10'3 (1.8-7.7); NEUTROPHILS % (AUTO) 75.8 % (42-75); PLATELET COUNT 371 X10'3 (140-440); RED BLOOD COUNT 5.49 X10'6 (4.70-6.10); WHITE BLOOD COUNT 17.9 X10'3 (4.5-11.0)
[2020-02-02 01:17] LABS: BACTERIA,URINE 2+ /HPF (Neg); CELLULAR CAST 0-4 /LPF (NEGATIVE); RBC,URINE 0-2 /HPF (0-2); SQUAMOUS EPITHELIAL CELL,UR MODERATE /LPF (FEW)
[2020-02-02 01:25] LABS: PLATELET ESTIMATE NORMAL; TOTAL CELLS COUNTED 100
[2020-02-02] MEDS ORDERED: ondansetron/PF 4mg/2ml inj IV ONE (01:30)
[2020-02-02 01:33] LABS: ALANINE AMINOTRANSFERASE 29 U/L (12-78); ALBUMIN 4.7 G/DL (3.4-5.0); ALBUMIN/GLOBULIN RATIO 1.2 (1.1-1.5); ALKALINE PHOSPHATASE 111 IU/L (46-116); ANION GAP 16 (8-16); ASPARTATE AMINO TRANSFERASE 17 U/L (10-37); BILIRUBIN,TOTAL 1.8 MG/DL (0.1-1.0); BLOOD UREA NITROGEN 19 MG/DL (7-18); BUN/CREATININE RATIO 8.7 (5.4-32.0); CALCIUM 9.9 MG/DL (8.5-10.1); CHLORIDE 102 MMOL/L (99-107); CREATININE 2.18 MG/DL (0.60-1.10); GLUCOSE 157 MG/DL (70-104); LIPASE 57 U/L (73-393); POTASSIUM 3.2 MMOL/L (3.5-5.1); SODIUM 143 MMOL/L (135-145); TOTAL CARBON DIOXIDE 25.1 MMOL/L (24-32); TOTAL PROTEIN 8.7 G/DL (6.4-8.2); eGFR 33 ML/MIN
[2020-02-02] MEDS ORDERED: normal saline 1000ML IV soln IVB ONE (01:35)
[2020-02-02] MEDS ORDERED: normal saline 1000ML IV soln IV ONE (02:50)
[2020-02-02] MEDS ORDERED: LEVO25TA2 PO (03:31)
[2020-02-02 04:06] VITALS: BP 138/81
== END 2020-02-02 04:08 | disposition home or self-care (01) ==
LOC: ER 00:29
DX: R11.2 Nausea with vomiting, unspecified (principal); R10.84 Generalized abdominal pain; F15.10 Other stimulant abuse, uncomplicated; G43.909 Migraine, unspecified, not intractable, without status migrainosus; F41.9 Anxiety disorder, unspecified; F32.9 Major depressive disorder, single episode, unspecified; F12.90 Cannabis use, unspecified, uncomplicated; F11.90 Opioid use, unspecified, uncomplicated; Z72.89 Other problems related to lifestyle; Z79.899 Other long term (current) drug therapy
CPT/HCPCS: 36415; 80053; 81001; 83690; 85025; 87088; 96361; 96374; 99283; J2405; J7030

== ENCOUNTER 2020-05-07 04:19 | Emergency (ER) | payer MEDICAID ==
[~2020-05-07] VITALS: Ht 175.3 cm; Wt 70.9 kg
[~2020-05-07 04:19] MED LIST changes: +LEVO25TA2 PO; -LEVO25TA7 PO
[2020-05-07 04:23] VITALS: BP 173/127
== END 2020-05-07 04:55 | disposition home or self-care (01) ==
LOC: ER 04:20
DX: G47.00 Insomnia, unspecified (principal); F15.10 Other stimulant abuse, uncomplicated; G43.909 Migraine, unspecified, not intractable, without status migrainosus; F41.9 Anxiety disorder, unspecified; F32.9 Major depressive disorder, single episode, unspecified; F12.90 Cannabis use, unspecified, uncomplicated; F11.90 Opioid use, unspecified, uncomplicated; Z79.899 Other long term (current) drug therapy; Z72.89 Other problems related to lifestyle
CPT/HCPCS: 93005; 99283

== ENCOUNTER 2020-08-13 00:38 | Emergency (ER) | payer MEDICAID ==
[~2020-08-13] VITALS: Ht 177.8 cm; Wt 70.4 kg
[2020-08-13 00:41] VITALS: BP 142/76
[2020-08-13 02:13] LABS: BASOPHILS % (AUTO) 0.4 % (0-1); EOSINOPHILS % (AUTO) 0.4 % (0-6); HEMATOCRIT 50.4 % (42.0-52.0); HEMOGLOBIN 17.4 g/dl (14.0-17.9); LYMPHOCYTES # (AUTO) 1.7 X10'3 (1.1-4.8); LYMPHOCYTES % (AUTO) 19.4 % (21-51); MEAN CORPUSCULAR HEMOGLOBIN 30.7 PG (27.0-31.0); MEAN CORPUSCULAR HGB CONC 34.4 g/dL (33.0-36.5); MEAN CORPUSCULAR VOLUME 89.2 FL (78-98); MEAN PLATELET VOLUME 6.7 FL (7.4-10.4); MONOCYTES # (AUTO) 1.2 X10'3 (0-0.9); MONOCYTES % (AUTO) 13.6 % (2-12); NEUTROPHILS # (AUTO) 5.9 X10'3 (1.8-7.7); NEUTROPHILS % (AUTO) 66.2 % (42-75); PLATELET COUNT 252 X10'3 (140-440); RED BLOOD COUNT 5.65 X10'6 (4.70-6.10); RED CELL DISTRIBUTION WIDTH 13.9 % (11.5-14.5)
[2020-08-13 02:23] LABS: ALANINE AMINOTRANSFERASE 55 U/L (12-78); ALBUMIN 4.6 G/DL (3.4-5.0); ALBUMIN/GLOBULIN RATIO 1.1 (1.1-1.5); ALKALINE PHOSPHATASE 115 IU/L (46-116); ANION GAP 11 (8-16); ASPARTATE AMINO TRANSFERASE 58 U/L (10-37); BILIRUBIN,TOTAL 1.3 MG/DL (0.1-1.0); BLOOD UREA NITROGEN 19 MG/DL (7-18); CALCIUM 9.1 MG/DL (8.5-10.1); CHLORIDE 102 MMOL/L (99-107); GLUCOSE 122 MG/DL (70-104); POTASSIUM 3.6 MMOL/L (3.5-5.1); SODIUM 136 MMOL/L (135-145); TOTAL CARBON DIOXIDE 22.8 MMOL/L (24-32); TOTAL PROTEIN 8.7 G/DL (6.4-8.2); eGFR 80 ML/MIN
[2020-08-13 02:28] LABS: D-DIMER < 0.19 MG/L FEU (0-0.50)
[2020-08-13] MEDS ORDERED: LORA2TAB96 PO (06:47)
[2020-08-13] MEDS ORDERED: DIPH25CA83 PO (06:47)
== END 2020-08-13 02:57 | disposition home or self-care (01) ==
LOC: ER 00:39
DX: R06.02 Shortness of breath (principal); G43.909 Migraine, unspecified, not intractable, without status migrainosus; F12.90 Cannabis use, unspecified, uncomplicated; F15.90 Other stimulant use, unspecified, uncomplicated; Z72.89 Other problems related to lifestyle; Z79.899 Other long term (current) drug therapy
CPT/HCPCS: 36415; 71045; 80053; 84484; 85025; 85379; 93005; 99285

== ENCOUNTER 2020-08-13 06:08 | Emergency (ER) | payer MEDICAID ==
[~2020-08-13] VITALS: Ht 177.8 cm; Wt 72.7 kg
[2020-08-13 06:27] VITALS: BP 144/110
[2020-08-13] MEDS ORDERED: LORA2TAB96 PO (06:47)
[2020-08-13] MEDS ORDERED: DIPH25CA83 PO (06:47)
== END 2020-08-13 06:55 | disposition home or self-care (01) ==
LOC: ER 06:09
DX: F41.9 Anxiety disorder, unspecified (principal); F12.90 Cannabis use, unspecified, uncomplicated; F15.90 Other stimulant use, unspecified, uncomplicated; F32.9 Major depressive disorder, single episode, unspecified; G43.909 Migraine, unspecified, not intractable, without status migrainosus; F11.90 Opioid use, unspecified, uncomplicated; Z72.89 Other problems related to lifestyle; Z79.899 Other long term (current) drug therapy
CPT/HCPCS: 99283

== ENCOUNTER 2020-08-30 09:45 | Emergency (ER) | payer MEDICAID ==
[~2020-08-30] VITALS: Ht 175.3 cm; Wt 71.0 kg
[~2020-08-30 09:45] MED LIST changes: +DIPH25CA83 PO; +LORA2TAB96 PO
[2020-08-30 10:02] VITALS: BP 155/100
[2020-08-30 10:56] LABS: BASOPHILS # (AUTO) 0.1 X10'3 (0-0.2); BASOPHILS % (AUTO) 0.5 % (0-1); EOSINOPHILS % (AUTO) 0.2 % (0-6); HEMATOCRIT 43.9 % (42.0-52.0); LYMPHOCYTES # (AUTO) 1.1 X10'3 (1.1-4.8); LYMPHOCYTES % (AUTO) 7.4 % (21-51); MEAN CORPUSCULAR HEMOGLOBIN 30.6 PG (27.0-31.0); MEAN CORPUSCULAR HGB CONC 34.2 g/dL (33.0-36.5); MEAN CORPUSCULAR VOLUME 89.7 FL (78-98); MEAN PLATELET VOLUME 6.5 FL (7.4-10.4); MONOCYTES # (AUTO) 1.1 X10'3 (0-0.9); MONOCYTES % (AUTO) 7.3 % (2-12); NEUTROPHILS # (AUTO) 12.8 X10'3 (1.8-7.7); NEUTROPHILS % (AUTO) 84.6 % (42-75); PLATELET COUNT 242 X10'3 (140-440); RED CELL DISTRIBUTION WIDTH 13.9 % (11.5-14.5); WHITE BLOOD COUNT 15.2 X10'3 (4.5-11.0)
--- NOTE | 2020-08-30 10:56 | NUR ---
PT REPORTS TO PA MONZON THAT HE IS NOT SUICIDAL.
[2020-08-30] MEDS ORDERED: LORazepam 1 MG tablet PO ONE (11:05)
[2020-08-30] MEDS ORDERED: risperiDONE 2mg tablet PO ONE (11:05)
[2020-08-30 11:16] LABS: ALANINE AMINOTRANSFERASE 44 U/L (12-78); ALBUMIN 4.4 G/DL (3.4-5.0); ALBUMIN/GLOBULIN RATIO 1.2 (1.1-1.5); ALKALINE PHOSPHATASE 112 IU/L (46-116); ANION GAP 8 (8-16); ASPARTATE AMINO TRANSFERASE 25 U/L (10-37); BILIRUBIN,TOTAL 1.6 MG/DL (0.1-1.0); BLOOD UREA NITROGEN 14 MG/DL (7-18); BUN/CREATININE RATIO 15.9 (5.4-32.0); CHLORIDE 100 MMOL/L (99-107); CREATININE 0.88 MG/DL (0.60-1.10); GLUCOSE 113 MG/DL (70-104); POTASSIUM 3.6 MMOL/L (3.5-5.1); SODIUM 135 MMOL/L (135-145); TOTAL CARBON DIOXIDE 26.9 MMOL/L (24-32); TOTAL PROTEIN 8.2 G/DL (6.4-8.2); eGFR > 90 ML/MIN
[2020-08-30 11:26] LABS: CALCIUM 8.7 MG/DL (8.5-10.1); ETHANOL < 0.010 GM/DL (0.0-0.010)
[2020-08-30 11:30] LABS: URINE AMPHETAMINE SCREEN POSITIVE (Neg); URINE BARBITUATE SCREEN NEGATIVE (Neg); URINE BENZODIAZEPINES SCREEN NEGATIVE (Neg); URINE CANNABINOID SCREEN POSITIVE (Neg); URINE COCAINE SCREEN NEGATIVE (Neg); URINE METHADONE SCREEN NEGATIVE (Neg); URINE OPIATE SCREEN NEGATIVE (Neg); URINE PHENCYCLIDINE SCREEN NEGATIVE (Neg)
--- NOTE | 2020-08-30 16:08 | NUR ---
[facility] AT BEDSIDE EVALUATING PT.
[2020-08-30] MEDS ORDERED: RISP2TAB97 PO (17:29)
--- NOTE | 2020-08-30 17:45 | NUR ---
[facility]SE CO TO BROACHER PT AT 1830 AND GO TO [facility].
== END 2020-08-30 18:24 | disposition home or self-care (01) ==
LOC: ER 09:45
DX: R44.0 Auditory hallucinations (principal); F41.9 Anxiety disorder, unspecified; G43.909 Migraine, unspecified, not intractable, without status migrainosus; F32.9 Major depressive disorder, single episode, unspecified; F12.90 Cannabis use, unspecified, uncomplicated; F15.90 Other stimulant use, unspecified, uncomplicated; F11.90 Opioid use, unspecified, uncomplicated; Z72.89 Other problems related to lifestyle; Z79.899 Other long term (current) drug therapy
CPT/HCPCS: 36415; 80053; 80305; 80320; 85025; 99284

== ENCOUNTER 2020-11-16 09:49 | Emergency (ER) | payer MEDICAID ==
[~2020-11-16] VITALS: Ht 177.8 cm; Wt 70.5 kg
[~2020-11-16 09:49] MED LIST changes: +RISP2TAB97 PO
[2020-11-16 10:10] VITALS: BP 183/123
[2020-11-16] MEDS ORDERED: PENI500T2 PO (10:37)
== END 2020-11-16 11:00 | disposition home or self-care (01) ==
LOC: ER 09:50
DX: K04.7 Periapical abscess without sinus (principal); K02.9 Dental caries, unspecified; G43.909 Migraine, unspecified, not intractable, without status migrainosus; F41.9 Anxiety disorder, unspecified; F32.9 Major depressive disorder, single episode, unspecified; F17.200 Nicotine dependence, unspecified, uncomplicated; F12.90 Cannabis use, unspecified, uncomplicated; F15.90 Other stimulant use, unspecified, uncomplicated; F11.90 Opioid use, unspecified, uncomplicated; Z72.89 Other problems related to lifestyle; Z79.2 Long term (current) use of antibiotics; Z79.899 Other long term (current) drug therapy
CPT/HCPCS: 99283

== ENCOUNTER 2021-02-07 07:03 | Emergency (ER) | payer MEDICAID ==
[~2021-02-07] VITALS: Ht 175.3 cm; Wt 71.3 kg
--- NOTE | 2021-02-07 07:46 | NUR ---
pt changing into greens
[2021-02-07 08:14] LABS: BASOPHILS % (AUTO) 0.3 % (0-1); EOSINOPHILS % (AUTO) 0.2 % (0-6); HEMATOCRIT 47.7 % (42.0-52.0); HEMOGLOBIN 16.4 g/dl (14.0-17.9); LYMPHOCYTES # (AUTO) 1.5 X10'3 (1.1-4.8); LYMPHOCYTES % (AUTO) 12.3 % (21-51); MEAN CORPUSCULAR HGB CONC 34.5 g/dL (33.0-36.5); MEAN CORPUSCULAR VOLUME 87.1 FL (78-98); MEAN PLATELET VOLUME 6.3 FL (7.4-10.4); MONOCYTES # (AUTO) 1.2 X10'3 (0-0.9); MONOCYTES % (AUTO) 9.7 % (2-12); NEUTROPHILS # (AUTO) 9.6 X10'3 (1.8-7.7); NEUTROPHILS % (AUTO) 77.5 % (42-75); PLATELET COUNT 253 X10'3 (140-440); RED BLOOD COUNT 5.47 X10'6 (4.70-6.10); RED CELL DISTRIBUTION WIDTH 14.6 % (11.5-14.5); WHITE BLOOD COUNT 12.3 X10'3 (4.5-11.0)
[2021-02-07 08:31] LABS: ALANINE AMINOTRANSFERASE 57 U/L (12-78); ALBUMIN 4.6 G/DL (3.4-5.0); ALBUMIN/GLOBULIN RATIO 1.1 (1.1-1.5); ALKALINE PHOSPHATASE 117 IU/L (46-116); ANION GAP 12 (8-16); ASPARTATE AMINO TRANSFERASE 37 U/L (10-37); BILIRUBIN,TOTAL 1.5 MG/DL (0.1-1.0); BLOOD UREA NITROGEN 15 MG/DL (7-18); BUN/CREATININE RATIO 15.3 (5.4-32.0); CALCIUM 9.3 MG/DL (8.5-10.1); CHLORIDE 101 MMOL/L (99-107); CREATININE 0.98 MG/DL (0.60-1.10); GLUCOSE 127 MG/DL (70-104); POTASSIUM 4.5 MMOL/L (3.5-5.1); SODIUM 137 MMOL/L (135-145); TOTAL CARBON DIOXIDE 24.2 MMOL/L (24-32); TOTAL PROTEIN 8.9 G/DL (6.4-8.2); eGFR 82 ML/MIN
[2021-02-07 08:50] LABS: ETHANOL < 0.010 GM/DL (0.0-0.010)
--- NOTE | 2021-02-07 09:44 | NUR ---
PT UP TO BR FOR UA
[2021-02-07 10:14] LABS: URINE AMPHETAMINE SCREEN POSITIVE (Neg); URINE BARBITUATE SCREEN NEGATIVE (Neg); URINE BENZODIAZEPINES SCREEN NEGATIVE (Neg); URINE CANNABINOID SCREEN POSITIVE (Neg); URINE COCAINE SCREEN NEGATIVE (Neg); URINE METHADONE SCREEN NEGATIVE (Neg); URINE OPIATE SCREEN NEGATIVE (Neg); URINE PHENCYCLIDINE SCREEN NEGATIVE (Neg)
--- NOTE | 2021-02-07 10:29 | NUR ---
PT SITTING UP IN BED WITH EYES CLOSED RR EQUAL AND UNLABORED
--- NOTE | 2021-02-07 11:33 | NUR ---
PACKET FAXED TO [facility]
--- NOTE | 2021-02-07 11:33 | NUR ---
PT RESTING ON LEFT SIDE RR EQUAL AND UNLABORED.
--- NOTE | 2021-02-07 12:14 | NUR ---
UP TO BATHROOM
--- NOTE | 2021-02-07 13:01 | NUR ---
PT C/O JOSE C. DR NAZARIO NOTIFIED VERBAL ORDER FOR ATIVAN 1MG PO X1 GIVEN
[2021-02-07] MEDS ORDERED: LORazepam 1 MG tablet PO ONE (13:05)
--- NOTE | 2021-02-07 13:33 | NUR ---
PT RESTING ON RIGHT SIDE RR EQUAL AND UNLABORED
--- NOTE | 2021-02-07 14:54 | NUR ---
PT UP TO BR STEADY GAIT
--- NOTE | 2021-02-07 16:21 | NUR ---
PT RESTING ON RIGHT SIDE RR EQUAL AND UNLABORED.
--- NOTE | 2021-02-07 17:38 | NUR ---
PT RESTING WITH EYES CLOSED RR EQUAL AND UNLABORED
--- NOTE | 2021-02-07 17:39 | NUR ---
PT RESTING EYES CLOSED RR EQUAL AND UNLABORED
[2021-02-07] MEDS ORDERED: RISP1TAB13 PO (18:27)
--- NOTE | 2021-02-07 18:46 | NUR ---
One to one with the patient to assess for severity of mental health symptoms. The patient reports that he is hearing voices and he has since childhood. He admits the voices have increased since recent meth use. He is very pleasant, alert, oriented and cooperative. Med rec completed with the patient. He was updated on the plan of care. Explained need for covid test for placement. He remains suicidal and he is aware that he is on a 5150 pending placement. He reports his anxiety is very high.
[2021-02-07] MEDS: risperiDONE 2mg tablet PO SCH (18:52)
[2021-02-07] MEDS: hydrOXYzine 25 MG tablet PO PRN (18:53)
--- NOTE | 2021-02-07 19:42 | NUR ---
The patient appears to be sleeping
[2021-02-07] MEDS ORDERED: RISPERIDONE PO SCH (21:00)
--- NOTE | 2021-02-07 22:00 | NUR ---
The patient appears to be sleeping
--- NOTE | 2021-02-08 00:22 | NUR ---
The patient appears to be sleeping
--- NOTE | 2021-02-08 02:30 | NUR ---
The patient appears to be sleeping. Received a call from Srinivas from [facility] and a nurse to nurse was provided. Covid result faxed. He did request a UA and discussed with Dr. Smith and at this there is no indication for a UA.
--- NOTE | 2021-02-08 03:58 | NUR ---
The patient up to the bathroom and is now appears to be back asleep
--- NOTE | 2021-02-08 04:58 | NUR ---
The patient appears to be sleeping
[2021-02-08] MEDS ORDERED: LORazepam 1 MG tablet PO ONE (08:45)
[2021-02-08] MEDS: hydrOXYzine 25 MG tablet PO PRN (15:20)
[2021-02-08 17:09] VITALS: BP 143/98
--- NOTE | 2021-02-08 20:30 | NUR ---
Patient awoke from nap and is eating the rest of his dinner and is up to restroom.
[2021-02-08] MEDS: risperiDONE 2mg tablet PO SCH (21:09)
[2021-02-09 04:45] LABS: CLARITY,URINE CLEAR (Clear); COLOR,URINE YELLOW (Yellow); GLUCOSE, URINE NEGATIVE (Neg); KETONES,URINE NEGATIVE (Neg); LEUKOCYTE ESTERASE ,URINE NEGATIVE (Neg); NITRITES, URINE NEGATIVE (Neg); OCCULT BLOOD,URINE NEGATIVE (Neg); PROTEIN,URINE NEGATIVE (Neg); UROBILINOGEN,URINE 0.2 E.U/dL (0.2-1.0)
[2021-02-09 04:54] LABS: UA COLLECTION TYPE CLN CATCH MIDSTREAM
[2021-02-09] MEDS: hydrOXYzine 25 MG tablet PO PRN (08:52)
[2021-02-09] MEDS ORDERED: ibuprofen 200mg tablet PO ONE (15:25)
== END 2021-02-09 17:10 | disposition home or self-care (01) ==
LOC: ER 07:04
DX: R45.851 Suicidal ideations (principal); Z20.822 Contact with and (suspected) exposure to COVID-19; F15.10 Other stimulant abuse, uncomplicated; R44.0 Auditory hallucinations; R06.02 Shortness of breath; G43.909 Migraine, unspecified, not intractable, without status migrainosus; F41.9 Anxiety disorder, unspecified; F32.9 Major depressive disorder, single episode, unspecified; F12.90 Cannabis use, unspecified, uncomplicated; F11.90 Opioid use, unspecified, uncomplicated; Z72.89 Other problems related to lifestyle; Z79.899 Other long term (current) drug therapy
CPT/HCPCS: 36415; 80053; 80305; 80320; 81003; 84439; 84443; 85025; 87426; 99285; Q0177

== ENCOUNTER 2021-02-14 20:49 | Emergency (ER) | payer MEDICAID ==
[~2021-02-14] VITALS: Ht 175.3 cm; Wt 75.0 kg
[~2021-02-14 20:49] MED LIST changes: -DIPH25CA83 PO; -LEVO25TA2 PO; -LORA2TAB96 PO; +RISP1TAB13 PO; -RISP2TAB97 PO
[2021-02-15 02:18] LABS: BASOPHILS % (AUTO) 0.3 % (0-1); EOSINOPHILS % (AUTO) 0.3 % (0-6); HEMATOCRIT 47.8 % (42.0-52.0); HEMOGLOBIN 16.6 g/dl (14.0-17.9); LYMPHOCYTES # (AUTO) 2.1 X10'3 (1.1-4.8); LYMPHOCYTES % (AUTO) 18.5 % (21-51); MEAN CORPUSCULAR HEMOGLOBIN 30.2 PG (27.0-31.0); MEAN CORPUSCULAR HGB CONC 34.8 g/dL (33.0-36.5); MEAN CORPUSCULAR VOLUME 86.9 FL (78-98); MEAN PLATELET VOLUME 6.2 FL (7.4-10.4); MONOCYTES # (AUTO) 1.5 X10'3 (0-0.9); MONOCYTES % (AUTO) 13.4 % (2-12); NEUTROPHILS # (AUTO) 7.6 X10'3 (1.8-7.7); NEUTROPHILS % (AUTO) 67.5 % (42-75); PLATELET COUNT 282 X10'3 (140-440); RED CELL DISTRIBUTION WIDTH 14.3 % (11.5-14.5); WHITE BLOOD COUNT 11.3 X10'3 (4.5-11.0)
[2021-02-15 02:26] LABS: ALANINE AMINOTRANSFERASE 63 U/L (12-78); ALBUMIN 4.8 G/DL (3.4-5.0); ALBUMIN/GLOBULIN RATIO 1.1 (1.1-1.5); ALKALINE PHOSPHATASE 107 IU/L (46-116); ANION GAP 11 (8-16); ASPARTATE AMINO TRANSFERASE 38 U/L (10-37); BILIRUBIN,TOTAL 2.2 MG/DL (0.1-1.0); BLOOD UREA NITROGEN 13 MG/DL (7-18); BUN/CREATININE RATIO 13.3 (5.4-32.0); CHLORIDE 101 MMOL/L (99-107); CREATININE 0.98 MG/DL (0.60-1.10); GLUCOSE 103 MG/DL (70-104); POTASSIUM 3.5 MMOL/L (3.5-5.1); SODIUM 136 MMOL/L (135-145); TOTAL CARBON DIOXIDE 24.5 MMOL/L (24-32); eGFR 82 ML/MIN
[2021-02-15 02:36] LABS: URINE AMPHETAMINE SCREEN POSITIVE (Neg); URINE BARBITUATE SCREEN NEGATIVE (Neg); URINE BENZODIAZEPINES SCREEN NEGATIVE (Neg); URINE CANNABINOID SCREEN POSITIVE (Neg); URINE COCAINE SCREEN NEGATIVE (Neg); URINE METHADONE SCREEN NEGATIVE (Neg); URINE OPIATE SCREEN NEGATIVE (Neg); URINE PHENCYCLIDINE SCREEN NEGATIVE (Neg)
[2021-02-15 02:39] LABS: ETHANOL < 0.010 GM/DL (0.0-0.010)
[2021-02-15] MEDS ORDERED: NO HOME MEDS (04:56)
[2021-02-15] MEDS ORDERED: risperiDONE 0.5mg tablet PO ONE ×2 (08:00)
--- NOTE | 2021-02-15 15:14 | NUR ---
[facility] AT BEDSIDE ASSESSING PT.
[2021-02-15 17:26] VITALS: BP 157/113
--- NOTE | 2021-02-15 19:36 | NUR ---
PT ACCEPTED TO [facility] PENDING THE COVID SWAB AND TSH LEVEL. BOTH LABS PENDING NOW AND WILL FAX TO FACILITY WHEN AVAILABLE.
--- NOTE | 2021-02-15 19:42 | NUR ---
DURING 1:1 BEDSIDE ASSESSMENT, PT DENIES SI/SH/HI. HE ENDORSES DEPRESSION AND ANXIETY WELL RACING THOUGHTS. STATES SOMETIMES SEES "SHADOWS" AND STATES THEY ARE RELATED TO HIS ETOH AND METH ABUSE. PT IS AWARE HE WAS ACCEPTED AT [facility] AND IS LOOKING FORWARD TO GOING BACK "AND GETTING THE HELP I NEED." PT IS CALM AND COOPERATIVE WITHOUT ANY ISSUES AND IS MEDICATION COMPLIANT. ISOLATIVE TO SELF AND NOT SOCIAL WITH PEERS OR STAFF.
[2021-02-15] MEDS ORDERED: mirtazapine 15mg tablet PO SCH (21:00)
--- NOTE | 2021-02-15 21:04 | NUR ---
per leidy office, pt accepted to [facility] at [facility] by CHAUNCEY Schwab and they will be coming to pick him up and transport him there shortly
== END 2021-02-15 21:44 ==
LOC: ER 20:50
DX: R44.0 Auditory hallucinations (principal); Z20.822 Contact with and (suspected) exposure to COVID-19; G43.909 Migraine, unspecified, not intractable, without status migrainosus; F41.9 Anxiety disorder, unspecified; F32.9 Major depressive disorder, single episode, unspecified; F12.90 Cannabis use, unspecified, uncomplicated; F15.90 Other stimulant use, unspecified, uncomplicated; F11.90 Opioid use, unspecified, uncomplicated; Z59.0 Homelessness; Z72.89 Other problems related to lifestyle; Z79.899 Other long term (current) drug therapy
CPT/HCPCS: 36415; 80053; 80305; 80320; 84443; 85025; 87635; 99285; C9803; 99284

== ENCOUNTER 2021-11-22 07:06 | Emergency (ER) | payer MEDICAID ==
[~2021-11-22] VITALS: Ht 175.3 cm; Wt 77.3 kg
[~2021-11-22 07:06] MED LIST changes: +NO HOME MEDS; -RISP1TAB13 PO
[2021-11-22 07:43] LABS: CLARITY,URINE CLEAR (Clear); GLUCOSE, URINE NEGATIVE (Neg); KETONES,URINE NEGATIVE (Neg); LEUKOCYTE ESTERASE ,URINE NEGATIVE (Neg); NITRITES, URINE NEGATIVE (Neg); OCCULT BLOOD,URINE TRACE-INTACT (Neg); PROTEIN,URINE NEGATIVE (Neg); UROBILINOGEN,URINE 0.2 E.U/dL (0.2-1.0)
[2021-11-22 07:44] LABS: COLOR,URINE STRAW (Yellow); UA COLLECTION TYPE CLN CATCH MIDSTREAM
[2021-11-22 07:56] LABS: BACTERIA,URINE FEW /HPF (Neg); MUCUS STRANDS NONE SEEN /LPF (Neg); RBC,URINE 0-2 /HPF (0-2); SQUAMOUS EPITHELIAL CELL,UR NONE SEEN /LPF (FEW); WBC,URINE 0-4 /HPF (0-4)
[2021-11-22 08:54] LABS: BASOPHILS % (AUTO) 0.2 % (0-1); EOSINOPHILS % (AUTO) 0.4 % (0-6); HEMATOCRIT 47.3 % (42.0-52.0); HEMOGLOBIN 16.2 g/dl (14.0-17.9); LYMPHOCYTES # (AUTO) 1.4 X10'3 (1.1-4.8); LYMPHOCYTES % (AUTO) 13.2 % (21-51); MEAN CORPUSCULAR HEMOGLOBIN 30.4 PG (27.0-31.0); MEAN CORPUSCULAR HGB CONC 34.3 g/dL (33.0-36.5); MEAN CORPUSCULAR VOLUME 88.4 FL (78-98); MEAN PLATELET VOLUME 6.6 FL (7.4-10.4); NEUTROPHILS # (AUTO) 8.2 X10'3 (1.8-7.7); NEUTROPHILS % (AUTO) 77.2 % (42-75); PLATELET COUNT 238 X10'3 (140-440); RED BLOOD COUNT 5.35 X10'6 (4.70-6.10); WHITE BLOOD COUNT 10.7 X10'3 (4.5-11.0)
[2021-11-22 09:17] LABS: ALANINE AMINOTRANSFERASE 64 U/L (12-78); ALBUMIN 4.6 G/DL (3.4-5.0); ALBUMIN/GLOBULIN RATIO 1.2 (1.1-1.5); ALKALINE PHOSPHATASE 115 IU/L (46-116); ANION GAP 10 (8-16); ASPARTATE AMINO TRANSFERASE 25 U/L (10-37); BILIRUBIN,TOTAL 0.7 MG/DL (0.1-1.0); BLOOD UREA NITROGEN 14 MG/DL (7-18); BUN/CREATININE RATIO 14.7 (5.4-32.0); CHLORIDE 103 MMOL/L (99-107); CREATININE 0.95 MG/DL (0.60-1.10); GLUCOSE 120 MG/DL (70-104); LIPASE 71 U/L (73-393); POTASSIUM 3.8 MMOL/L (3.5-5.1); SODIUM 140 MMOL/L (135-145); TOTAL PROTEIN 8.6 G/DL (6.4-8.2); eGFR 85 ML/MIN
[2021-11-22] MEDS ORDERED: ondansetron 4mg rapidly disintigrating tab PO ONE (10:20)
[2021-11-22 10:45] VITALS: BP 145/111
== END 2021-11-22 10:47 | disposition home or self-care (01) ==
LOC: ER 07:07
DX: R19.7 Diarrhea, unspecified (principal); R11.10 Vomiting, unspecified; R51.9 Headache, unspecified; G43.909 Migraine, unspecified, not intractable, without status migrainosus; F41.9 Anxiety disorder, unspecified; F32.9 Major depressive disorder, single episode, unspecified; F12.10 Cannabis abuse, uncomplicated; F15.10 Other stimulant abuse, uncomplicated; F11.10 Opioid abuse, uncomplicated
CPT/HCPCS: 36415; 80053; 81001; 83690; 85025; 99283

== ENCOUNTER 2021-12-09 09:05 | Emergency (ER) | payer MEDICAID ==
[~2021-12-09] VITALS: Ht 175.3 cm; Wt 77.3 kg
--- NOTE | 2021-12-09 12:21 | NUR ---
Patient given urinal for specimen.
[2021-12-09 12:34] LABS: BASOPHILS # (AUTO) 0.1 X10'3 (0-0.2); BASOPHILS % (AUTO) 0.3 % (0-1); EOSINOPHILS % (AUTO) 0 % (0-6); HEMOGLOBIN 16.8 g/dl (14.0-17.9); LYMPHOCYTES # (AUTO) 1.6 X10'3 (1.1-4.8); LYMPHOCYTES % (AUTO) 10.2 % (21-51); MEAN CORPUSCULAR HEMOGLOBIN 29.2 PG (27.0-31.0); MEAN CORPUSCULAR HGB CONC 33.5 g/dL (33.0-36.5); MEAN PLATELET VOLUME 6.5 FL (7.4-10.4); MONOCYTES # (AUTO) 1.6 X10'3 (0-0.9); MONOCYTES % (AUTO) 10.3 % (2-12); NEUTROPHILS # (AUTO) 12.2 X10'3 (1.8-7.7); NEUTROPHILS % (AUTO) 79.2 % (42-75); PLATELET COUNT 288 X10'3 (140-440); RED BLOOD COUNT 5.75 X10'6 (4.70-6.10); RED CELL DISTRIBUTION WIDTH 14.2 % (11.5-14.5); WHITE BLOOD COUNT 15.4 X10'3 (4.5-11.0)
[2021-12-09 12:48] LABS: ALANINE AMINOTRANSFERASE 42 U/L (12-78); ALBUMIN 4.9 G/DL (3.4-5.0); ALBUMIN/GLOBULIN RATIO 1.2 (1.1-1.5); ALKALINE PHOSPHATASE 115 IU/L (46-116); ANION GAP 16 (8-16); ASPARTATE AMINO TRANSFERASE 30 U/L (10-37); BILIRUBIN,TOTAL 1.9 MG/DL (0.1-1.0); BLOOD UREA NITROGEN 16 MG/DL (7-18); CALCIUM 9.4 MG/DL (8.5-10.1); CHLORIDE 103 MMOL/L (99-107); CREATININE 0.94 MG/DL (0.60-1.10); GLUCOSE 109 MG/DL (70-104); POTASSIUM 4.2 MMOL/L (3.5-5.1); SODIUM 140 MMOL/L (135-145); TOTAL CARBON DIOXIDE 20.9 MMOL/L (24-32); TOTAL PROTEIN 9.1 G/DL (6.4-8.2); eGFR 86 ML/MIN
[2021-12-09 12:58] LABS: ETHANOL < 0.010 GM/DL (0.0-0.010)
[2021-12-09 13:39] LABS: URINE AMPHETAMINE SCREEN POSITIVE (Neg); URINE BARBITUATE SCREEN NEGATIVE (Neg); URINE BENZODIAZEPINES SCREEN NEGATIVE (Neg); URINE CANNABINOID SCREEN POSITIVE (Neg); URINE COCAINE SCREEN NEGATIVE (Neg); URINE METHADONE SCREEN NEGATIVE (Neg); URINE OPIATE SCREEN NEGATIVE (Neg); URINE PHENCYCLIDINE SCREEN NEGATIVE (Neg)
--- NOTE | 2021-12-09 13:41 | NUR ---
Patient given lunch tray.
--- NOTE | 2021-12-09 13:54 | NUR ---
Patient pacing in room; states, "my anxiety is up, walking around helps."
--- NOTE | 2021-12-09 14:44 | NUR ---
Patient requests medication for anxiety; ER Provider declines request. Mental Health to assess patient shortly.
--- NOTE | 2021-12-09 17:09 | NUR ---
Patient resting quietly in bed; no apparent distress.
--- NOTE | 2021-12-09 17:18 | NUR ---
Phone call from [facility] for patient history.
--- NOTE | 2021-12-09 17:34 | NUR ---
[facility] called and stated they need copy of COVID test and urinalysis. UA ordered per charge manager.
--- NOTE | 2021-12-09 17:34 | NUR ---
Note steve in ED - 12/09/21 at 1739 by MISSAEL [facility] called and stated they need copy of COVID test and urinalysis. UA ordered per fire chief deputy.
--- NOTE | 2021-12-09 17:37 | NUR ---
[facility]ang phone# ; Addendum: 12/09/21 at 1739 by MISSAEL Restpadd phone# ;
--- NOTE | 2021-12-09 17:39 | NUR ---
Patient ambulated to bed #27 from main ED. Pt presents fatigued. Pt calm/cooperative.
[2021-12-09 17:53] LABS: CLARITY,URINE SLIGHTLY CLOUDY (Clear); COLOR,URINE YELLOW (Yellow); GLUCOSE, URINE NEGATIVE (Neg); KETONES,URINE 40 mg/dl (Neg); LEUKOCYTE ESTERASE ,URINE NEGATIVE (Neg); NITRITES, URINE NEGATIVE (Neg); OCCULT BLOOD,URINE TRACE-INTACT (Neg); PROTEIN,URINE 100 mg/dl (Neg); UROBILINOGEN,URINE 0.2 E.U/dL (0.2-1.0)
[2021-12-09 17:55] LABS: UA COLLECTION TYPE CLN CATCH MIDSTREAM
[2021-12-09 18:02] LABS: SQUAMOUS EPITHELIAL CELL,UR FEW /LPF (FEW)
[2021-12-09 18:03] LABS: MUCUS STRANDS MODERATE /LPF (Neg)
[2021-12-09 18:04] LABS: BACTERIA,URINE FEW /HPF (Neg); RBC,URINE 0-2 /HPF (0-2)
[2021-12-09] MEDS: OLANZapine 2.5MG tablet PO SCH (19:10)
--- NOTE | 2021-12-09 19:30 | NUR ---
One to one with the patient who is alert and oriented. He reports A/V hallucinations. Reports auditory hallucinations are of a sexual nature and he denies they tell him to harm himself. He reports he takes no medications at home. He reports suicidal thoughts. He also stated that he feels anxious and paranoid. Discussed patient report with Dr. Barbosa and orders recieved.
--- NOTE | 2021-12-09 20:43 | NUR ---
THe patient is resting on his bed.
--- NOTE | 2021-12-09 21:10 | NUR ---
The patient is resting on his bed.
[2021-12-09] MEDS ORDERED: traZODone 50mg tablet PO ONE (22:35)
--- NOTE | 2021-12-09 22:35 | NUR ---
The patient up to the station requesting sleep med. made aware and orders received.
--- NOTE | 2021-12-09 23:37 | NUR ---
The patient appears to be sleeping
--- NOTE | 2021-12-10 01:15 | NUR ---
The patient appears to be sleeping
--- NOTE | 2021-12-10 02:20 | NUR ---
The patient appears to be sleeping
--- NOTE | 2021-12-10 04:26 | NUR ---
The patient appears to be sleeping
[2021-12-10 05:55] VITALS: BP 133/99
[2021-12-10] MEDS ORDERED: OLANZapine 2.5MG tablet PO ONE (06:05)
--- NOTE | 2021-12-10 06:34 | NUR ---
Pt was up pacing in front of nurses station and now laying in bed.
[2021-12-10] MEDS: OLANZapine 2.5MG tablet PO SCH (08:00)
== END 2021-12-10 11:32 | disposition home or self-care (01) ==
LOC: ER 09:05 → ADULT MH 12-10 08:45 → UNDOADMIN 12-10 08:45 → ER 12-10 11:32
DX: R45.851 Suicidal ideations (principal); Z20.822 Contact with and (suspected) exposure to COVID-19; F15.90 Other stimulant use, unspecified, uncomplicated; G43.909 Migraine, unspecified, not intractable, without status migrainosus; F41.9 Anxiety disorder, unspecified; F32.A Depression, unspecified; F12.90 Cannabis use, unspecified, uncomplicated; Z72.89 Other problems related to lifestyle
CPT/HCPCS: 36415; 80053; 80305; 80320; 81001; 84443; 85025; 87635; 99285; C9803; 99284